=== PATIENT | female | born 2000 | race Caucasian/White ===

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

== ENCOUNTER 2023-02-13 11:27 | Emergency (ER) | payer OTHER, BC, SELFPAY ==
[2023-02-13 11:30] VITALS: BP 110/68; PULSE 94; RESP 18; TEMP 36; O2SAT 99
--- NOTE | 2023-02-13 11:52 | ED.GENADUL_ITS ---
Discharge Plan Disposition Patient Disposition: Home Condition: Good Discharge Details Clinical Impression: Contact with and (suspected) exposure to rabies Primary Care Provider: Fadia Blankenship ED Provider: Sudhakar Keyes Home Meds and New Rx's Prescriptions: Continued triamcinolone acetonide 0.1 % cream 1 applic topical BID Qty: 30 2RF clindamycin-benzoyl peroxide 1-5 % gel 1 applic topical BID Qty: 50 2RF Rx Instructions: use regularly for acne prevention Discharge Instructions Instructions: Rabies Vaccine (By injection) Additional Instructions: You have been set up for another vaccine on 02/16/2023. Please contact the infusion center for vaccination time. If you develop any symptoms feel free to return the emergency department for reassessment otherwise follow-up with your primary care provider as needed. Referrals: Fadia Blankenship MD [Primary Care Provider] - Discharge Data Discharge Date/Time-TO BE ENTERED AT DEPARTURE: 02/13/23 12:16 Medical Decision Making Patient presenting to the emergency department for chief complaint of rabies exposure. Patient reports that she was taking care of a dog that is highly suspected of having rabies. Because of this the [facility] health department recommended that she receives postexposure prophylaxis. Patient is fully vaccinated for rabies and completed her series almost 3 years ago. Patient is completely asymptomatic and denies all review of systems. Spoke with pharmacist who recommended that patient receive vaccine today and second dose in 3 days for postexposure prophylaxis. Orders were placed for patient to receive dose here a nd to go to infusion center for second dose. No other interventions are needed given that patient is asymptomatic at this time. After discussion of diagnosis and plan of care patient has no further needs, questions, or concerns and states clear understanding to return to the emergency department for any worsening symptoms. This documentation was generated using [employer] system, please disregard any oddities of phrase or misspellings. HPI General Mode of arrival: ambulatory . Date/Time Provider Initiated Documentation: 02/13/23 11:32 . Limitations to Documentation: no limitations . Information obtained by: patient and RN notes reviewed . History of Present Illness 22 year old F presents to the emergency department with the chief complaint of Rabies exposure, Patient notes no other symptoms.. Related Data Home Medications Medication Instructions Recorded Confirmed triamcinolone acetonide 0.1 % 1 applic topical BID #30 grams 01/10/21 02/13/23 topical cream clindamycin 1 %-benzoyl peroxide 5 1 applic topical BID #50 grams 07/31/22 02/13/23 % topical gel Previous Rx's Medication Instructions Recorded triamcinolone acetonide 0.1 % 1 applic topical BID #30 grams 01/10/21 topical cream clindamycin 1 %-benzoyl peroxide 5 1 applic topical BID #50 grams 07/31/22 % topical gel Allergies Allergy/AdvReac Type Severity Reaction Status Date / Time codeine AdvReac Unknown Hyperactivi Verified 05/05/22 08:08 ty General Stated Complaint: GenMedical ABBIE: 4 Review of Systems All systems reviewed & are unremarkable except as noted in HPI and below PFSH All Active Problems Contact with and (suspected) exposure to rabies (Acute) Well adult health check (Acute) Shortness of breath (Chronic) ?asthma at Pulmonology eval but not at time of f/u. Nml ENT eval other than possible mild reflux. Normal thyroid u/s. Short stature for age (Acute 11/29/12) Body mass index, pediatric, 5th percentile to less than 85th percentile for age (Acute 05/24/15) Medical History Concussion 2012 and 2016 Headache Short stature Family History Mother No problems noted. Father No problems noted. Other Personal history of malignant neoplasm throat CA- PG uncle Heart disease early cardiac paternal second cousin Grandparent Essential hypertension Personal history of malignant neoplasm Heart disease Hyperlipidemia Mental disorder Sibling Scoliosis older sister Social History Second Hand Exposure: No Smoking risk assessment performed?: No Education Level: college Details: [employer] fall 2021 Do you feel safe at home: Yes Do you feel safe in your relationship?: Yes Additional Social history: lives w/ both parents, Dad contruction mother does the paperwork for dads business 1 older sister in college, younger brother Exam Const General: cooperative, no acute distress and not ill appearing Orientation: alert, awake and oriented x3 HENMT Mouth: moist mucous membranes Resp Effort & Inspection: normal respiratory effort, able to speak in complete sentences and no respiratory distress Auscultation: clear to auscultation bilaterally Cardio Rate: regular rate Rhythm: regular rhythm Heart Sounds: S1 normal and S2 normal Skin General skin exam: no rashes or lesions noted Neuro General: patient alert, patient awake, patient oriented x3, moves all extremities and no focal motor deficits Sensory Exam: no sensory deficits noted Course Vital Signs Vital signs: Vital Signs Temperature 36.0 C L 02/13/23 11:30 Pulse 94 H 02/13/23 11:30 Respiratory Rate 18 02/13/23 11:30 Blood Pressure 110/68 02/13/23 11:30 Pulse Oximetry 99 02/13/23 11:30 Temperature 36.0 C L 02/13/23 11:30 Temperature Source Oral 02/13/23 11:30 Pulse 94 H 02/13/23 11:30 Respiratory Rate 18 02/13/23 11:30 Blood Pressure 110/68 02/13/23 11:30 Blood Pressure Position Sitting 02/13/23 11:30 Pulse Oximetry 99 02/13/23 11:30 Oxygen Delivery Method Room Air 02/13/23 11:30 Oxygen Flow Rate 0 02/13/23 11:30 Pain Level 0 02/13/23 11:30
--- NOTE | 2023-02-13 12:18 | NUR.NOTE ---
Nursing Note: Rabies vaccination form faxed to Infusion Room for further care.
== END 2023-02-13 12:16 | disposition home or self-care (01) ==
PROVIDERS: Emergency Provider Nurse Practitioner Family; PCP Student in an Organized Health Care Education/Training Program
DX: Z20.3 Contact with and (suspected) exposure to rabies (principal); Z23 Encounter for immunization
CPT/HCPCS: 90471; 99282; 90675; 99283

== ENCOUNTER 2023-02-16 01:21 | Outpatient (RCR) | payer OTHER, BC, SELFPAY | END 2023-02-25 23:59 | disposition home or self-care (01) | LOC: INF 01:21 | PROVIDERS: PCP Student in an Organized Health Care Education/Training Program; Visit Provider Nurse Practitioner Family | DX: Z20.3 Contact with and (suspected) exposure to rabies (principal) | CPT/HCPCS: 90471; 90675 ==

== ENCOUNTER 2023-06-05 04:03 | Outpatient (CLI) | payer BC, SELFPAY ==
[2023-06-16 14:37] LABS: Rabies Antibody Endpoint 8.9 IU/mL
== END 2023-06-05 04:04 | disposition home or self-care (01) ==
LOC: LBO 04:03
PROVIDERS: PCP Student in an Organized Health Care Education/Training Program; Visit Provider Student in an Organized Health Care Education/Training Program
DX: Z20.3 Contact with and (suspected) exposure to rabies (principal)
CPT/HCPCS: 36415; 86317